=== PATIENT | male | born 1965 | race Caucasian/White ===

== ENCOUNTER → 2017-06-14 | Outpatient (CLI) | payer OTHER ==
[~2017-06-14] MED LIST: ALBUAER19 INH; ATR25 PO; BSP/10 PO; BUSP-8 PO; DSY/150 PO; GABA600T PO; HYDR50CA2 PO; VENL150C PO
[2017-06-14 17:58] LABS: BASO % 0.2 %; BASO ABS # 0.02 K/uL (0-0.2); COMPLETE YES; EOS % 3.6 %; HEMATOCRIT 44.9 % (42-52); IG% 0.5 %; LYMPH % 27.7 %; LYMPH ABS # 2.54 K/uL (1.2-3.4); MEAN CELL VOLUME 94.5 fL (80-100); MEAN CORPUSCULAR HEMOGLOBIN 32.6 pg (25-34); MEAN CORPUSCULAR HGB CONC 34.5 g/dl (32-36); MEAN PLATELET VOLUME 9.5 fL (7.4-10.4); MONO % 10.1 %; NEUT % 57.9 %; PLATELET COUNT 305 K/uL (130-400); RED BLOOD COUNT 4.75 M/uL (4.7-6.1); WHITE BLOOD COUNT 9.17 K/uL (4.8-10.8)
[2017-06-14 18:13] LABS: ALKALINE PHOSPHATASE 67 U/L (45-117); ALT/SGPT 51 U/L (12-78); AST/SGOT 30 U/L (15-37)
== END | disposition home or self-care (01) ==
LOC: C.LABPBG 15:15
PROVIDERS: ATTEND Family Medicine
DX: F10.20 Alcohol dependence, uncomplicated (principal)

== ENCOUNTER → 2017-11-09 | Outpatient (CLI) | payer OTHER ==
[2017-11-09 12:28] LABS: BASO % 0.4 %; BASO ABS # 0.03 K/uL (0-0.2); EOS % 1.9 %; EOS ABS # 0.14 K/uL (0-0.5); HEMATOCRIT 48.9 % (42-52); HEMOGLOBIN 17.5 g/dL (14.0-18.0); IG# 0.02 K/uL (0.00-0.02); LYMPH % 25.4 %; LYMPH ABS # 1.85 K/uL (1.2-3.4); MEAN CELL VOLUME 91.4 fL (80-100); MEAN CORPUSCULAR HEMOGLOBIN 32.7 pg (25-34); MEAN CORPUSCULAR HGB CONC 35.8 g/dl (32-36); MONO % 8.7 %; MONO ABS # 0.63 K/uL (0.11-0.59); NEUT % 63.3 %; NEUT ABS # 4.61 K/uL (1.4-6.5); PLATELET COUNT 379 K/uL (130-400); RED CELL DISTRIBUTION WIDTH SD 47.1 fL (36.4-46.3); WHITE BLOOD COUNT 7.28 K/uL (4.8-10.8)
[2017-11-09 12:50] LABS: ALBUMIN 3.5 gm/dl (3.4-5.0); ALKALINE PHOSPHATASE 73 U/L (45-117); ALT/SGPT 37 U/L (12-78); AST/SGOT 17 U/L (15-37); TOTAL PROTEIN 8.1 gm/dl (6.4-8.2)
--- NOTE | 2017-11-17 09:34 | CODING QUERY NO DIAGNOSIS ---
: 1965 Valid Physician Order Needed A valid physician order must be submitted in order to properly bill for the service(s) provided, including date of service(s), valid diagnosis, and physician signature. If these tests are done on a recurring basis the original physician order must be submitted in order to code and bill for the service(s) provided. Please fax us the original, signed physician order so that we may expedite billing to [phone] DOS 11/09/2017 * CBC w/ Diff * Liver Profile Original order attached. Please provide physician signature on order. Thank you Мария Villed[facility] [employer]
== END | disposition home or self-care (01) ==
LOC: C.LABPBG 10:49
PROVIDERS: ATTEND Family Medicine
DX: F10.20 Alcohol dependence, uncomplicated (principal)